=== PATIENT | male | born 1965 | race African-American/Black ===

== ENCOUNTER 2021-04-18 14:33 | Emergency (ER) | payer OTHER ==
[~2021-04-18] VITALS: Ht 188 cm; Wt 106.6 kg
[~2021-04-18 14:33] MED LIST: ASPIRIN EC81 MG PO; GLUCOPHAGE500 MG PO; LANTUS100 UNITS/ SUB-Q; NOVOLOG100 UNITS/ SUB-Q; ULTRAM50 MG PO; ZOCOR40 MG PO
[2021-04-18] MEDS ORDERED: DITROPAN XL5 MG PO (15:13)
== END 2021-04-18 15:25 | disposition home or self-care (01) ==
LOC: ED 14:33
DX: N32.89 Other specified disorders of bladder (principal); E11.9 Type 2 diabetes mellitus without complications; Z85.46 Personal history of malignant neoplasm of prostate; Z88.8 Allergy status to other drugs, medicaments and biological substances; Z79.52 Long term (current) use of systemic steroids; Z79.4 Long term (current) use of insulin
CPT/HCPCS: 99283

== ENCOUNTER 2022-10-26 02:46 | Inpatient (IN) | payer OTHER ==
[~2022-10-26] VITALS: Ht 188 cm; Wt 106.4 kg
[~2022-10-26 02:46] MED LIST changes: +DITROPAN XL5 MG PO
[2022-10-26] MEDS ORDERED: METFORMIN HCL500 M3 PO (03:27)
[2022-10-26] MEDS ORDERED: CINNAMON500 MG PO (03:27)
[2022-10-26] MEDS ORDERED: KRILL OIL 1,001 EACH PO (03:28)
--- NOTE | 2022-10-27 07:24 | EKG ---
[facility] [address] [facility] [place] [address] Signed Normal sinus rhythm Minimal voltage criteria for LVH, may be normal variant ( R in aVL ) Nonspecific T wave abnormality Abnormal ECG No previous ECGs available Confirmed by SHAHBAZ FIGUEROA MD ([id number]) on 10/27/2022 7:23:54 AM Electronically Signed By: SHAHBAZ FIGUEROA MD 10/27/22 0724 PATIENT NAME: FELIZOREN Electrocardiogram DATE OF : 65 PHYSICIAN: SHAHBAZ FIGUEROA MD REPORT #: [id number] REPORT IS CONFIDENTIAL AND NOT TO BE RELEASED WITHOUT AUTHORIZATION
[2022-10-27] MEDS ORDERED: LIPITOR40 MG PO (10:01)
[2022-10-27] MEDS ORDERED: CLOPIDOGREL75 MG PO (10:01)
[2022-10-27] MEDS ORDERED: ENOXAPARIN40 MG/0.4 SUB-Q (10:01)
[2022-10-27] MEDS ORDERED: INSULIN GL100 UNIT/1 SUB-Q (10:02)
[2022-10-27] MEDS ORDERED: LANTUS100 UNITS/ SUB-Q (10:39)
== END 2022-10-27 12:53 | disposition home or self-care (01) | DRG 64 ==
LOC: ED 02:46 → MS 02:48
PROVIDERS: ADMIT Internal Medicine; ATTEND Internal Medicine
DX: I63.9 Cerebral infarction, unspecified (principal); G81.91 Hemiplegia, unspecified affecting right dominant side; Z20.822 Contact with and (suspected) exposure to COVID-19; E11.9 Type 2 diabetes mellitus without complications; E78.5 Hyperlipidemia, unspecified; I10 Essential (primary) hypertension; R20.2 Paresthesia of skin; Z85.46 Personal history of malignant neoplasm of prostate; Z90.79 Acquired absence of other genital organ(s); Z98.890 Other specified postprocedural states; Z88.8 Allergy status to other drugs, medicaments and biological substances; Z79.4 Long term (current) use of insulin; Z79.82 Long term (current) use of aspirin; Z79.899 Other long term (current) drug therapy
CPT/HCPCS: 36415; 70450; 70496; 70498; 70551; 71045; 80053; 80061; 81001; 84484; 85025; 85610; 85730; 87502; 93005; 93010; 93306; 97162; 97166; 97530; A9270; C9803; J0360; J1650; J1815; J7030; Q9967; U0003

== ENCOUNTER 2025-05-11 10:27 | Emergency (ER) | payer OTHER, BC ==
[~2025-05-11] VITALS: Ht 188 cm; Wt 98.0 kg
[~2025-05-11 10:27] MED LIST changes: +CINNAMON500 MG PO; +CLOPIDOGREL75 MG PO; +ENOXAPARIN40 MG/0.4 SUB-Q; +INSULIN GL100 UNIT/1 SUB-Q; +KRILL OIL 1,001 EACH PO; +LIPITOR40 MG PO; +METFORMIN HCL500 M3 PO
[2025-05-11] MEDS ORDERED: NORVASC10 MG PO (10:45)
[2025-05-11] MEDS ORDERED: TENORMIN100 MG PO (10:45)
[2025-05-11] MEDS ORDERED: EZETIMIBE10 MG PO (10:46)
[2025-05-11] MEDS ORDERED: MINOXIDIL10 MG PO (10:47)
[2025-05-11] MEDS ORDERED: ZESTRIL40 MG PO (10:47)
[2025-05-11] MEDS ORDERED: JARDIANCE10 MG PO (10:47)
[2025-05-11] MEDS ORDERED: TORSEMIDE20 MG PO (10:48)
[2025-05-11 10:53] LABS: BASOPHILS 0.3 % (0.2-1.2); EOSINOPHILS 2.0 % (0.8-7.0); LYMPHOCYTES 13.0 % (21.8-53.1); MCH 25.9 PG (25.7-32.2); MCHC 31.4 g/dL (32.3-36.5); MCV 82.7 fL (79.0-92.2); MONOCYTES 7.8 % (5.3-12.2); NEUTROPHILS 76.7 % (34.0-67.9); RBC 3.70 M/uL (4.63-6.08)
[2025-05-11 11:05] LABS: AST (SGOT) 10.0 U/L (15-37); GLOMERULAR FILTRATION RATE,EST 17.0 mL/min (>60); PROTEIN, TOTAL 6.9 g/dL (6.4-8.2); UREA NITROGEN 58.0 mg/dL (7-18)
[2025-05-11 11:19] LABS: ALT (SGPT) 14.0 U/L (14-59)
[2025-05-11 13:35] VITALS: BP 138/62
--- NOTE | 2025-05-14 07:35 | EKG ---
[facility] [address] [facility] [place] [address] Signed Normal sinus rhythm Minimal voltage criteria for LVH, may be normal variant ( R in aVL ) Cannot rule out Anterior infarct , age undetermined T wave abnormality, consider inferolateral ischemia Abnormal ECG When compared with ECG of 26-OCT-2022 03:22, T wave inversion more evident in Inferior leads Confirmed by Faiza Wilcox DO ([id number]) on 05/14/2025 7:35:54 AM Electronically Signed By: FAIZA WILCOX DO 05/14/25 0735 PATIENT NAME: OREN FELIZ Electrocardiogram DATE OF : 65 PHYSICIAN: FAIZA WILCOX DO REPORT #: [id number] REPORT IS CONFIDENTIAL AND NOT TO BE RELEASED WITHOUT AUTHORIZATION
== END 2025-05-11 13:39 | disposition short-term general hospital (02) ==
LOC: ED 10:27
PROVIDERS: Emergency Medicine
DX: R42 Dizziness and giddiness (principal); I10 Essential (primary) hypertension; E11.9 Type 2 diabetes mellitus without complications; Z88.8 Allergy status to other drugs, medicaments and biological substances
CPT/HCPCS: 36415; 70450; 80053; 85025; 93005; 93010; 99285-25